=== PATIENT | female | born 1935 | race Caucasian/White ===

== ENCOUNTER 2021-11-21 12:42 | Emergency (ER) | payer MEDICARE, SELFPAY ==
[2021-11-21 13:52] VITALS: BP 176/100; PULSE 74; RESP 15; TEMP 36.5; O2SAT 98; BMI 25.9
--- NOTE | 2021-11-21 14:08 | ED_ITS ---
HPI - General Adult General: Chief complaint: General Medical Stated complaint: hot flash Time Seen by Provider: 11/21/21 13:59 History of Present Illness: Patient is an 86-year-old female history of hypertension, anxiety who presents the emergency room for concerns of hot flashes. Patient tells me that she has had intermittent hot flashes for the last week. Patient says that the weather is very hot. Patient tells me that even with her AC on, she feels sweaty at home. Patient denies going outside or being in a hot environment from a long period of time. Patient tells me that she applies damp towels on her which improves her heat but when she removes it she feels hot again. Patient denies any fever, cough, runny nose, sore throat, chest pain, short of breath, diarrhea, abdominal complaints, complaints or focal neurological complaints at this time. Patient denies having any rash on her body. She denies any prior episodes of hot flashes. Patient denies any po st menopausal vaginal pain or discharge or bleeding. Onset:1 week ago Duration:1 week Location:home Severity:moderate Associated symptoms: Deny chest pain, dyspnea, nausea, rash, palpitations or vomiting Review of Systems Const: Denies: fever(s) (+feeling hot flushes throughout the day) or chills Eyes: Denies: change in vision ENMT: Denies: mouth pain Card: Denies: chest pain or palpitations Resp: Denies: dyspnea or non-productive cough GI: Denies: abdominal pain, nausea, vomiting or diarrhea : Denies: dysuria Musc: Denies: extremity pain Skin/Breast: Denies: rash or new lesions Neuro: Denies: weakness in extremities Psych: Reports: other (Normal mood) Win/Lymph: Denies: easy bruising PFS ED PFSH: Medical History Anxiety Hypothyroidism Social History Smoking and tobacco status: never smoked Alcohol intake: never Substance/Drug Use: never Physical Exam Const: COMMON NORMALS: alert HENMT: COMMON NORMALS: atraumatic HEAD & SCALP: atraumatic MOUTH: moist mucous membranes not abnormal OTHER: + No sinus area tenderness to palpation bilaterally Eye: COMMON NORMALS: EOMs intact bilaterally and conjunctivae normal CONJUNCTIVA: Yes conjunctivae normal Neck/C-Spine: COMMON NORMALS: full ROM and supple OTHER: no meningismus signs Resp: COMMON NORMALS: normal respiratory effort and clear to auscultation bilaterally AUSCULTATION: clear to auscultation bilaterally Cardio: COMMON NORMALS: regular rate RATE: regular rate GI: COMMON NORMALS: Soft to palpation and non-tender PALPATION: Yes Soft to palpation Extremity: COMMON NORMALS: full ROM Neuro: SENSORIUM/ORIENTATION: Yes alert MOTOR EXAM: No Abnormal motor strength present and Other motor observations present (no focal motor deficits) Psych: COMMON NORMALS: speech normal SPEECH: Yes normal speech MOOD & AFFECT: Yes euthymic mood Course Vital Signs: Vital signs: Vital Signs Temperature 97.7 F 11/21/21 13:52 Pulse Rate 74 11/21/21 13:52 Respiratory Rate 15 11/21/21 13:52 Blood Pressure 176/100 11/21/21 13:52 Pulse Oximetry 98 11/21/21 13:52 Oxygen Delivery Me thod 11/21/21 13:52 MDM - General Adult Medical Decision Making 86-year-old female with history of anxiety, hypothyroidism presenting to the emergency room for evaluation of hot flashes. On exam, patient is afebrile. There is no meningismus. Patient has no maxillary sinus area tenderness to palpation. Lab work-up is unremarkable including thyroid function and COVID and influenza swabs. At the present time, do not suspect acute sepsis, meningitis or acute infection at this time. Patient has been able to tolerate p.o. without any difficulty. Given patient close follow-up with PCP for reassessment Disposition: Discharge. Patient counseled regarding diagnostic impression, treatment plan. Patient given ED strict return precautions to return for continuation, worsening, or development of new symptoms. Instructed to f/u w/ PCP regarding symptoms today. Patient verbalized understanding. Lab Data : 11/21/21 15:00 11/21/21 15:00 Laboratory Results WBC 8.4 10^3/uL (4.0-10.0) 11/21/21 15:00 RBC 4.17 10^6/uL (4.1-5.3) 11/21/21 15:00 Hgb 12.3 g/dL (11.5-15.3) 11/21/21 15:00 Hct 36.6 % (37.0-47.0) L 11/21/21 15:00 MCV 87.8 fl (81-99) 11/21/21 15:00 MCH 29.5 pg (28.0-34.0) 11/21/21 15:00 MCHC 33.6 g/dL (30.0-36.0) 11/21/21 15:00 RDW 13.1 % (12.1-15.1) 11/21/21 15:00 Plt Count 287 10^3/cmm (130-400) 11/21/21 15:00 MPV 10.1 fL (7.4-10.4) 11/21/21 15:00 Neut % (Auto) 56.3 % 11/21/21 15:00 Lymph % (Auto) 31.6 % 11/21/21 15:00 Mcdowell % (Auto) 8.6 % 11/21/21 15:00 Eos % (Auto) 1.7 % 11/21/21 15:00 Baso % (Auto) 1.4 % 11/21/21 15:00 Neut # (Auto) 4.75 10^3/uL (1.8-7.7) 11/21/21 15:00 Lymph # (Auto) 2.7 10^3/uL (0.8-4.8) 11/21/21 15:00 Mcdowell # (Auto) 0.7 10^3/uL (0.2-0.9) 11/21/21 15:00 Eos # (Auto) 0.1 10^3/uL (0.0-0.8) 11/21/21 15:00 Baso # (Auto) 0.1 10^3/uL (0.0-0.1) 11/21/21 15:00 Nucleated RBC % (auto) 0 % 11/21/21 15:00 Nucleated RBCs # 0.0 /100WBC 11/21/21 15:00 Sodium 138 mmol/L (136-145) 11/21/21 15:00 Potassium 3.8 mmol/L (3.5-5.1) 11/21/21 15:00 Chloride 103 mmol/L (98-107) 11/21/21 15:00 Carbon Dioxide 26 mmol/L (22-29) 11/21/21 15:00 Anion Gap 12.8 (5-19) 11/21/21 15:00 BUN 11 mg/dL (8-23) 11/21/21 15:00 Creatinine 0.5 mg/dL (0.5-0.9) 11/21/21 15:00 GFR Calculation Not Reportable 11/21/21 15:00 Glucose 98 mg/dL (65-115) 11/21/21 15:00 Calculated Osmolality 285 mOsm/kg (285-295) 11/21/21 15:00 Calcium 9.6 mg/dL (8.5-10.5) 11/21/21 15:00 Total Bilirubin 0.2 mg/dL (0.15-1.2) 11/21/21 15:00 AST 15 U/L (0-32) 11/21/21 15:00 ALT 10 U/L (0-33) 11/21/21 15:00 Alkaline Phosphatase 66 IU/L (35-105) 11/21/21 15:00 Total Protein 7.3 g/dL (6.6-8.7) 11/21/21 15:00 Albumin 4.0 g/dL (3.5-5.2) 11/21/21 15:00 Globulin 3.3 g/dL (1.3-4.6) 11/21/21 15:00 Lipase 51 U/L (13-60) 11/21/21 15:00 TSH 1.09 uIU/mL (0.27-4.20) 11/21/21 15:00 Free T4 1.27 ng/dL (0.82-1.77) 11/21/21 15:00 Influenza Type A Ag Negative (Negative) 11/21/21 15:30 Influenza Type B Ag Negative (Negative) 11/21/21 15:30 SARS-CoV-2 Ag (Rapid) Negative (Negative) 11/21/21 15:30 Discharge Plan Discharge Patient Disposition: Home Clinical Impression: Hot flashes Condition: Stable Prescriptions: New acetaminophen 500 mg tablet 500 mg PO Q6H PRN (Reason: pain) 5 Days Qty: 20 0RF Discharge Orders: Discharge ED (Routine); Ordered 11/21/21 Ordered By: Jared Nick Discharge Diet: Advance as tolerated Discharge Activity: Increase activity as tolerated Activity Restrictions/Additional Instructions: Come back if you have any new or concerning issues. Coding Level of Care Code ED Ethnoarchaeologist for Chg Fwd Exam Comprehensive
[2021-11-21 15:39] LABS: Basophils # 0.1 10^3/uL (0.0-0.1); Basophils % 1.4 %; Eosinophils # 0.1 10^3/uL (0.0-0.8); Eosinophils % 1.7 %; Hematocrit 36.6 % (37.0-47.0); Hemoglobin 12.3 g/dL (11.5-15.3); Lymphocytes # 2.7 10^3/uL (0.8-4.8); Lymphocytes % 31.6 %; Mean Corpuscular HGB Conc 33.6 g/dL (30.0-36.0); Mean Corpuscular Hemoglobin 29.5 pg (28.0-34.0); Mean Corpuscular Volume 87.8 fl (81-99); Mean Platelet Volume 10.1 fL (7.4-10.4); Monocytes # 0.7 10^3/uL (0.2-0.9); Monocytes % 8.6 %; Neutrophils # 4.75 10^3/uL (1.8-7.7); Neutrophils % 56.3 %; Nucleated Red Blood Cells % 0 %; Platelet Count 287 10^3/cmm (130-400); Red Blood Count 4.17 10^6/uL (4.1-5.3); Red Cell Distribution Width 13.1 % (12.1-15.1); White Blood Count 8.4 10^3/uL (4.0-10.0)
[2021-11-21 15:57] LABS: Influenza A by IFA Negative (Negative); Influenza B by IFA Negative (Negative)
[2021-11-21 15:59] LABS: SARS Covid-2 Antigen Negative (Negative)
[2021-11-21 16:16] LABS: Alanine Aminotransferase 10 U/L (0-33); Alkaline Phosphatase 66 IU/L (35-105); Anion Gap 12.8 (5-19); Aspartate Amino Transferase 15 U/L (0-32); Blood Urea Nitrogen 11 mg/dL (8-23); Calcium 9.6 mg/dL (8.5-10.5); Carbon Dioxide 26 mmol/L (22-29); Chloride 103 mmol/L (98-107); Free T4 Free Thyroxine 1.27 ng/dL (0.82-1.77); Globulin 3.3 g/dL (1.3-4.6); Glucose 98 mg/dL (65-115); Lipase 51 U/L (13-60); Osmolality Calculated 285 mOsm/kg (285-295); Potassium 3.8 mmol/L (3.5-5.1); Sodium 138 mmol/L (136-145); Thyroid Stimulating Hormone 1.09 uIU/mL (0.27-4.20); Total Bilirubin 0.2 mg/dL (0.15-1.2); Total Protein 7.3 g/dL (6.6-8.7)
== END 2021-11-21 16:40 | disposition home or self-care (01) ==
PROVIDERS: Emergency Provider Emergency Medicine
DX: R23.2 Flushing (principal); Z20.822 Contact with and (suspected) exposure to COVID-19; R61 Generalized hyperhidrosis
CPT/HCPCS: 80053; 83690; 84439; 84443; 85025; 87426; 87804; 99283

== ENCOUNTER 2022-09-25 12:53 | Emergency (ER) | payer MEDICARE, OTHER, SELFPAY ==
[2022-09-25 12:58] VITALS: BMI 25.6
[2022-09-25 13:01] VITALS: BP 105/57; PULSE 72; RESP 16; TEMP 36.6; O2SAT 96
--- NOTE | 2022-09-25 13:15 | W.ED.NAVMDI ---
HPI - Nausea/Vomiting/Diarrhea General: Chief complaint: Nausea/Vomiting/Diarrhea Stated complaint: n/v/d Time Seen by Provider: 09/25/22 13:05 Source: patient Mode of arrival: ambulatory Limitations: no limitations History of Present Illness: 87-year-old female states that she did check in on Thursday and felt like she probably did not cook enough she states that Thursday and Thursday she is having severe vomiting and diarrhea states she is can had some abdominal cramping since then and feeling queasy she has felt improved. She denies any fever denies any dysuria denies any worsening proving factors. Associated nausea: Yes Associated symtoms: Reports nausea; Denies chest pain, dysuria or headache(s) Review of Systems Const: Denies: fever(s) or chills Eyes: Denies: eye discomfort ENMT: Denies: throat pain or dental pain Card: Denies: chest pain Resp: Denies: dyspnea GI: Reports: abdominal pain, nausea, vomiting and diarrhea : Denies: dysuria Musc: Denies: neck pain or back pain Skin/Breast: Denies: rash Neuro: Denies: headache(s) PFSH ED PFSH: Medical History Anxiety Hypothyroidism Social History Smoking and tobacco status: never smoked Alcohol intake: never Substance/Drug Use: never Physical Exam Const: COMMON NORMALS: no acute distress, patient oriented x3 and healthy appearing HENMT: COMMON NORMALS: normocephalic and atraumatic HEAD & SCALP: normocephalic and atraumatic Neck/C-Spine: COMMON NORMALS: full ROM and supple Chest: COMMONS NORMALS: normal inspection of the chest and normal palpation of entire chest wall Resp: COMMON NORMALS: normal respiratory effort, No retractions, No use of accessory muscles and clear to auscultation bilaterally AUSCULTATION: clear to auscultation bilaterally Cardio: COMMON NORMALS: regular rate, regular rhythm and No murmurs present (Cardio) RATE: regular rate RHYTHM: regular rhythm GI: COMMON NORMALS: Normal to inspection, nondistended, normoactive bowel sounds present, Soft to palpation, non-tender and no masses PALPATION: Yes Soft to palpation Extremity: COMMON NORMALS: normal to inspection and full ROM Neuro: COMMON NORMALS: patient oriented x3, moves all extremities and no focal motor deficits Psych: COMMON NORMALS: mental status grossly normal, Normal thought process present and cooperative THOUGHT PROCESS: Normal thought process present Skin: COMMON NORMALS: no rashes or lesions noted and no wounds GENERAL SKIN EXAM: no rashes or lesions noted Course Vital Signs: Vital signs: Vital Signs Temperature 97.8 F 09/25/22 13:01 Pulse Rate 63 09/25/22 14:46 Respiratory Rate 16 09/25/22 14:46 Blood Pressure 149/51 09/25/22 14:46 Pulse Oximetry 94 09/25/22 14:46 Oxygen Delivery Me thod Room Air 09/25/22 13:01 MDM - Nausea/Vomiting/Diarrhea Medical Decision Making Patient presents here with nausea vomiting is likely food related she feels much improved after Zofran she eaten crackers and drink water with no difficulties. Blood work here is normal her abdominal exam discharge is benign she has no signs of any acute surgical abdomen we will place on Zofran for home she is to follow-up with her PCP she is return if worsening she understands agrees to plan. Medical Records I reviewed the patient's medical records. Lab Data I reviewed the patient's lab results. 09/25/22 13:15 09/25/22 13:15 Laboratory Results WBC 13.4 10^3/uL (4.0-10.0) H 09/25/22 13:15 RBC 4.12 10^6/uL (4.1-5.3) 09/25/22 13:15 Hgb 12.3 g/dL (11.5-15.3) 09/25/22 13:15 Hct 36.8 % (37.0-47.0) L 09/25/22 13:15 MCV 89.3 fl (81-99) 09/25/22 13:15 MCH 29.9 pg (28.0-34.0) 09/25/22 13:15 MCHC 33.4 g/dL (30.0-36.0) 09/25/22 13:15 RDW 12.7 % (12.1-15.1) 09/25/22 13:15 Plt Count 249 10^3/cmm (130-400) 09/25/22 13:15 MPV 10.1 fL (7.4-10.4) 09/25/22 13:15 Neut % (Auto) 69.9 % 09/25/22 13:15 Lymph % (Auto) 16.6 % 09/25/22 13:15 Greer % (Auto) 11.8 % 09/25/22 13:15 Eos % (Auto) 0.8 % 09/25/22 13:15 Baso % (Auto) 0.5 % 09/25/22 13:15 Neut # (Auto) 9.37 10^3/uL (1.8-7.7) H 09/25/22 13:15 Lymph # (Auto) 2.2 10^3/uL (0.8-4.8) 09/25/22 13:15 Greer # (Auto) 1.6 10^3/uL (0.2-0.9) H 09/25/22 13:15 Eos # (Auto) 0.1 10^3/uL (0.0-0.8) 09/25/22 13:15 Baso # (Auto) 0.1 10^3/uL (0.0-0.1) 09/25/22 13:15 Nucleated RBC % (auto) 0 % 09/25/22 13:15 Nucleated RBCs # 0.0 /100WBC 09/25/22 13:15 Sodium 131 mmol/L (136-145) L 09/25/22 13:15 Potassium 3.2 mmol/L (3.5-5.1) L 09/25/22 13:15 Chloride 96 mmol/L (98-107) L 09/25/22 13:15 Carbon Dioxide 24 mmol/L (22-29) 09/25/22 13:15 Anion Gap 14.2 (5-19) 09/25/22 13:15 BUN 21 mg/dL (8-23) 09/25/22 13:15 Creatinine 0.7 mg/dL (0.5-0.9) 09/25/22 13:15 GFR Calculation Not Reportable 09/25/22 13:15 Glucose 96 mg/dL (65-115) 09/25/22 13:15 Calculated Osmolality 275 mOsm/kg (285-295) L 09/25/22 13:15 Calcium 9.2 mg/dL (8.5-10.5) 09/25/22 13:15 Total Bilirubin 0.3 mg/dL (0.15-1.2) 09/25/22 13:15 AST 16 U/L (0-32) 09/25/22 13:15 ALT 11 U/L (0-33) 09/25/22 13:15 Alkaline Phosphatase 55 U/L (35-105) 09/25/22 13:15 Total Protein 7.0 g/dL (6.6-8.7) 09/25/22 13:15 Albumin 3.9 g/dL (3.5-5.2) 09/25/22 13:15 Globulin 3.1 g/dL (1.3-4.6) 09/25/22 13:15 Lipase 62 U/L (13-60) H 09/25/22 13:15 Discharge Plan Discharge Patient Disposition: Home Clinical Impression: Vomiting Condition: Stable Prescriptions: New ondansetron 4 mg tablet,disintegrating 4 mg PO Q6H PRN (Reason: nausea and vomiting) Qty: 14 0RF Discharge Orders: Discharge ED (Routine); Ordered 09/25/22 Ordered By: Kathryn Moreira Referrals: Leighton Valencia [Primary Care Provider] - 1-3 days Discharge Diet: Advance as tolerated Discharge Activity: Resume usual activity Patient Instructions: Acute Nausea and Vomiting (ED) Coding Level of Care Code ED [employer] Social Worker for Clayton Newman
[2022-09-25 13:32] LABS: Basophils # 0.1 10^3/uL (0.0-0.1); Basophils % 0.5 %; Eosinophils # 0.1 10^3/uL (0.0-0.8); Eosinophils % 0.8 %; Hematocrit 36.8 % (37.0-47.0); Hemoglobin 12.3 g/dL (11.5-15.3); Lymphocytes # 2.2 10^3/uL (0.8-4.8); Lymphocytes % 16.6 %; Mean Corpuscular HGB Conc 33.4 g/dL (30.0-36.0); Mean Corpuscular Hemoglobin 29.9 pg (28.0-34.0); Mean Corpuscular Volume 89.3 fl (81-99); Mean Platelet Volume 10.1 fL (7.4-10.4); Monocytes # 1.6 10^3/uL (0.2-0.9); Monocytes % 11.8 %; Neutrophils # 9.37 10^3/uL (1.8-7.7); Neutrophils % 69.9 %; Nucleated Red Blood Cells % 0 %; Platelet Count 249 10^3/cmm (130-400); Red Blood Count 4.12 10^6/uL (4.1-5.3); Red Cell Distribution Width 12.7 % (12.1-15.1); White Blood Count 13.4 10^3/uL (4.0-10.0)
[2022-09-25] MEDS: diphenoxylate/atropine Tablet 1 TAB PO (13:41)
[2022-09-25] MEDS: ondansetron 2 mg/ML SDV 2 mL 4 MG IVP (13:42)
[2022-09-25] MEDS: sodium chloride 0.9% 1,000 ML 999 ML IV (13:42)
[2022-09-25 13:52] LABS: Alanine Aminotransferase 11 U/L (0-33); Albumin Level 3.9 g/dL (3.5-5.2); Alkaline Phosphatase 55 U/L (35-105); Anion Gap 14.2 (5-19); Aspartate Amino Transferase 16 U/L (0-32); Blood Urea Nitrogen 21 mg/dL (8-23); Calcium 9.2 mg/dL (8.5-10.5); Carbon Dioxide 24 mmol/L (22-29); Chloride 96 mmol/L (98-107); Globulin 3.1 g/dL (1.3-4.6); Glucose 96 mg/dL (65-115); Lipase 62 U/L (13-60); Osmolality Calculated 275 mOsm/kg (285-295); Potassium 3.2 mmol/L (3.5-5.1); Sodium 131 mmol/L (136-145); Total Bilirubin 0.3 mg/dL (0.15-1.2)
[2022-09-25 14:46] VITALS: BP 149/51; PULSE 63; RESP 16; O2SAT 94
== END 2022-09-25 14:48 | disposition home or self-care (01) ==
PROVIDERS: Emergency Provider Emergency Medicine; PCP Family Medicine
DX: R11.11 Vomiting without nausea (principal)
CPT/HCPCS: 36415; 80053; 83690; 85025; 96374; 99284; J2405; J7030